=== PATIENT | male | born 1950 ===

== ENCOUNTER → 2018-01-14 | Emergency (ER) | payer OTHER ==
[~2018-01-14] VITALS: Ht 182.9 cm; Wt 113.4 kg
[~2018-01-14] MED LIST: ADVAIR HFA 230/12 GM; ASPIR 8181 MG; METOPROLOL SUCC25 MG
== END | disposition home or self-care (01) ==
LOC: ER 11:39
DX: L03.115 Cellulitis of right lower limb (principal); I87.2 Venous insufficiency (chronic) (peripheral)